=== PATIENT | male | born 1955 | race African-American/Black ===

== ENCOUNTER 2018-06-22 08:42 | Inpatient (IN) | payer BC, MEDICAID ==
[~2018-06-22] VITALS: Ht 182.9 cm; Wt 95.4 kg
[~2018-06-22 08:42] MED LIST: ASPI-1159 PO; CLOP75TA16 MT; COR6 PO; ISOS30TA12 PO; PRAV80TA21 PO; SACU1TAB7 PO
[2018-06-22] MEDS ORDERED: LOSA25TA3 PO (08:49)
[2018-06-22] MEDS ORDERED: NITROGLYCERIN 0.4MG TABLET SL SL PRN (09:15)
[2018-06-22] MEDS ORDERED: ASPIRIN 81MG EC TABLET PO ONE (09:15)
[2018-06-22 09:46] LABS: EOSINOPHILS % 0.8 % (0.0-5.0); HEMOGLOBIN. 15.6 g/dL (14.0-18.0); MEAN CORPUSCULAR HEMOGLOBIN 28.7 pg (28.0-32.0); MEAN CORPUSCULAR VOLUME 86.5 fL (80.0-94.0); MEAN PLATELET VOLUME 8.6 fl (7.4-10.4); MONOCYTES % 4.4 % (2.0-8.0); NEUTROPHILS % 79.8 % (40.0-76.0); PLATELET 163 x1000/uL (130-400); RED BLOOD CELL COUNT 5.43 mill/uL (4.7-6.1); RED CELL DISTRIBUTION WIDTH 14.2 % (11.6-14.6)
[2018-06-22 09:53] LABS: CHLORIDE 104 mEq/L (98-107)
[2018-06-22] MEDS ORDERED: HEPARIN 5000 UNITS/ML VIAL IV SCH ×2 (10:15→11:15)
[2018-06-22] MEDS: NITROGLYCERIN OINT 1GM/INCH UDPKT TD SCH ×3 (11:26→23:32)
[2018-06-22 12:22] VITALS: BP 130/69
[2018-06-22] MEDS ORDERED: IODIXANOL 320MG/ML 100 ML BOTTLE IV ONE (12:22)
[2018-06-22] MEDS ORDERED: FENTANYL CITRATE/PF 50MCG/ML 2ML VIAL ONE ×2 (12:47→13:58)
[2018-06-22] MEDS ORDERED: MIDAZOLAM HCL 2 MG/2 ML VIAL ONE ×2 (12:47→13:40)
[2018-06-22] MEDS ORDERED: LIDOCAINE HCL 1% 20ML VIAL (Pyxis) INJ ONE ×2 (13:13→14:20)
[2018-06-22] MEDS ORDERED: IODIXANOL 320MG/ML 200ML BOTTLE ONE (13:27)
[2018-06-22] MEDS ORDERED: IOHEXOL-300 100 ML BOTTLE ONE (13:37)
[2018-06-22] MEDS ORDERED: CLOPIDOGREL 75MG TABLET ONE (14:20)
[2018-06-22] MEDS ORDERED: SODIUM CHLORIDE 0.45% 1,000 ML IV ONE (14:30)
[2018-06-22] MEDS ORDERED: ONDANSETRON HCL 4MG/2ML INJ IV PRN (14:30)
[2018-06-22] MEDS ORDERED: ACETAMINOPHEN 325MG TABLET PO PRN (14:30)
[2018-06-22] MEDS ORDERED: CLOPIDOGREL 75MG TABLET PO ONE (14:30)
[2018-06-22] MEDS ORDERED: MORPHINE SULFATE 4 MG/ML CPJ (NOT FOR IM USE) IV PRN (14:30)
[2018-06-22] MEDS ORDERED: ATROPINE SULFATE 1MG/10ML SYR IV PRN (14:30)
[2018-06-22 15:12] VITALS: BP 130/69
[2018-06-22] MEDS ORDERED: HEPARIN SODIUM 1,000 UNIT/1ML VIAL IV ONE (15:18)
[2018-06-22] MEDS ORDERED: CEFAZOLIN 1000MG PREMIX 50 ML IV SCH (15:30)
[2018-06-22 16:00] VITALS: BP 117/74
[2018-06-22 18:00] VITALS: BP 109/8
[2018-06-22 20:00] VITALS: BP 106/67
[2018-06-22] MEDS: CARVEDILOL 6.25 MG TABLET PO SCH (21:22)
[2018-06-22 22:00] VITALS: BP 119/80
[2018-06-22] MEDS: ZOLPIDEM TARTRATE 5MG TABLET PO PRN (23:31)
[2018-06-23] VITALS (20 sets, daily range): BP systolic 97–135; BP diastolic 58–83
[2018-06-23] MEDS: NITROGLYCERIN OINT 1GM/INCH UDPKT TD SCH ×4 (06:00→23:18)
[2018-06-23] MEDS: ASPIRIN 325MG TABLET PO SCH (08:35)
[2018-06-23] MEDS: CLOPIDOGREL 75MG TABLET PO SCH (08:35)
[2018-06-23] MEDS: CARVEDILOL 6.25 MG TABLET PO SCH ×2 (08:36→21:21)
[2018-06-23] MEDS: LOSARTAN POTASSIUM 25 MG TABLET PO SCH (08:36)
[2018-06-23 11:46] LABS: BASOPHILS % 1.1 % (0.0-2.0); EOSINOPHILS % 2.1 % (0.0-5.0); HEMATOCRIT. 42.6 % (42.0-52.0); HEMOGLOBIN. 14.5 g/dL (14.0-18.0); LYMPHOCYTES % 25.6 % (20.0-50.0); MEAN CORPUSCULAR HEMOGLOBIN 29.2 pg (28.0-32.0); MEAN CORPUSCULAR VOLUME 85.9 fL (80.0-94.0); MEAN PLATELET VOLUME 8.8 fl (7.4-10.4); MONOCYTES % 11.5 % (2.0-8.0); NEUTROPHILS % 59.7 % (40.0-76.0); PLATELET 143 x1000/uL (130-400); RED BLOOD CELL COUNT 4.96 mill/uL (4.7-6.1); RED CELL DISTRIBUTION WIDTH 13.9 % (11.6-14.6)
[2018-06-23 12:06] LABS: CHLORIDE 105 mEq/L (98-107)
[2018-06-23 12:16] LABS: CREATINE KINASE MB FRACTION 40.7 ng/mL (0.5-3.6)
[2018-06-23 12:20] LABS: CREATINE KINASE 465 IU/L (39-308)
[2018-06-23 12:21] LABS: HDL CHOLESTEROL 38 mg/dL (40-59)
[2018-06-23 14:33] LABS: LDL CHOLESTEROL 106 mg/dL (5-100)
[2018-06-23 18:09] LABS: BASOPHILS % 0.8 % (0.0-2.0); EOSINOPHILS % 3.6 % (0.0-5.0); HEMATOCRIT. 43.9 % (42.0-52.0); HEMOGLOBIN. 14.7 g/dL (14.0-18.0); LYMPHOCYTES % 31.2 % (20.0-50.0); MEAN CORPUSCULAR HEMOGLOBIN 28.8 pg (28.0-32.0); MEAN PLATELET VOLUME 8.4 fl (7.4-10.4); MONOCYTES % 10.1 % (2.0-8.0); NEUTROPHILS % 54.3 % (40.0-76.0); PLATELET 147 x1000/uL (130-400); RED CELL DISTRIBUTION WIDTH 13.7 % (11.6-14.6)
[2018-06-23 18:15] LABS: CHLORIDE 105 mEq/L (98-107)
[2018-06-23 18:29] LABS: HDL CHOLESTEROL 40 mg/dL (40-59)
[2018-06-23 19:02] LABS: LDL CHOLESTEROL 101 mg/dL (5-100)
[2018-06-23] MEDS: ZOLPIDEM TARTRATE 5MG TABLET PO PRN (23:18)
[2018-06-24] VITALS (9 sets, daily range): BP systolic 103–145; BP diastolic 64–95
[2018-06-24] MEDS: NITROGLYCERIN OINT 1GM/INCH UDPKT TD SCH (06:00)
[2018-06-24 07:55] LABS: BASOPHILS % 0.4 % (0.0-2.0); EOSINOPHILS % 4.5 % (0.0-5.0); HEMATOCRIT. 43.7 % (42.0-52.0); HEMOGLOBIN. 14.6 g/dL (14.0-18.0); LYMPHOCYTES % 32.7 % (20.0-50.0); MEAN CORPUSCULAR HEMOGLOBIN 28.7 pg (28.0-32.0); MEAN CORPUSCULAR VOLUME 85.8 fL (80.0-94.0); MEAN PLATELET VOLUME 8.5 fl (7.4-10.4); MONOCYTES % 11.7 % (2.0-8.0); NEUTROPHILS % 50.7 % (40.0-76.0); PLATELET 147 x1000/uL (130-400); RED BLOOD CELL COUNT 5.09 mill/uL (4.7-6.1)
[2018-06-24 08:33] LABS: CHLORIDE 106 mEq/L (98-107)
[2018-06-24 08:47] LABS: CREATINE KINASE 218 IU/L (39-308)
[2018-06-24 08:51] LABS: CREATINE KINASE MB FRACTION 7.8 ng/mL (0.5-3.6)
[2018-06-24] MEDS: ASPIRIN 325MG TABLET PO SCH (09:37)
[2018-06-24] MEDS: CLOPIDOGREL 75MG TABLET PO SCH (09:37)
[2018-06-24] MEDS: CARVEDILOL 6.25 MG TABLET PO SCH (09:37)
[2018-06-24] MEDS: LOSARTAN POTASSIUM 25 MG TABLET PO SCH (09:37)
== END 2018-06-24 12:19 | disposition home or self-care (01) | DRG 246 ==
LOC: ER 08:42 → EDBEDREQ 09:34 → EDBEDREQTM 09:34 → 3WST 09:56 → EDBEDREQTM 10:07 → EDBEDREQ 10:07 → EDBEDREQSVC 10:07 → ENRESERV 11:19
PROVIDERS: ADMIT Internal Medicine; ATTEND Internal Medicine
PROC: 027035Z Dilation of Coronary Artery, One Artery with Two Drug-eluting Intraluminal Devices, Percutaneous Approach (ICD-10-PCS; principal; 2018-06-22)
PROC: 4A023N7 Measurement of Cardiac Sampling and Pressure, Left Heart, Percutaneous Approach (ICD-10-PCS; 2018-06-22)
PROC: B2111ZZ Fluoroscopy of Multiple Coronary Arteries using Low Osmolar Contrast (ICD-10-PCS; 2018-06-22)
PROC: B2151ZZ Fluoroscopy of Left Heart using Low Osmolar Contrast (ICD-10-PCS; 2018-06-22)
PROC: B2181ZZ Fluoroscopy of Left Internal Mammary Bypass Graft using Low Osmolar Contrast (ICD-10-PCS; 2018-06-22)
PROC: B2131ZZ Fluoroscopy of Multiple Coronary Artery Bypass Grafts using Low Osmolar Contrast (ICD-10-PCS; 2018-06-22)
DX: T82.857A Stenosis of other cardiac prosthetic devices, implants and grafts, initial encounter (principal); I21.4 Non-ST elevation (NSTEMI) myocardial infarction; I10 Essential (primary) hypertension; E78.00 Pure hypercholesterolemia, unspecified; I25.10 Atherosclerotic heart disease of native coronary artery without angina pectoris; I25.5 Ischemic cardiomyopathy; R73.9 Hyperglycemia, unspecified; E78.5 Hyperlipidemia, unspecified; M17.0 Bilateral primary osteoarthritis of knee; Y83.2 Surgical operation with anastomosis, bypass or graft as the cause of abnormal reaction of the patient, or of later complication, without mention of misadventure at the time of the procedure; Y92.89 Other specified places as the place of occurrence of the external cause; Z95.810 Presence of automatic (implantable) cardiac defibrillator; I25.2 Old myocardial infarction; Z79.899 Other long term (current) drug therapy; Z95.5 Presence of coronary angioplasty implant and graft
CPT/HCPCS: 36415; 71045; 80061; 82550; 82553; 83036; 83735; 83880; 84443; 84484; 85347; 85379; 92941; 93005; 93306; 93459; 96374; 99285; C1725; C1760; C1769; C1874; C1887; C1893; J0690; J1644; J2250; J3010; J3490; Q9967

== ENCOUNTER 2021-05-20 07:09 | Inpatient (IN) | payer BC ==
[~2021-05-20] VITALS: Ht 177.8 cm; Wt 101.6 kg
[~2021-05-20 07:09] MED LIST changes: -ASPI-1159 PO; +ASPI-1497 PO; -CLOP75TA16 MT; -ISOS30TA12 PO; +LOSA25TA3 PO; -PRAV80TA21 PO; -SACU1TAB7 PO
[2021-05-20 08:05] LABS: BASOPHILS % 0.9 % (0.0-2.0); EOSINOPHILS % 4.7 % (0.0-5.0); HEMATOCRIT. 48.1 % (42.0-52.0); HEMOGLOBIN. 16.2 g/dL (14.0-18.0); LYMPHOCYTES % 29.2 % (20.0-50.0); MEAN CORPUSCULAR HEMOGLOBIN 28.9 pg (28.0-32.0); MEAN CORPUSCULAR VOLUME 85.7 fL (80.0-94.0); MEAN PLATELET VOLUME 8.9 fl (7.4-10.4); MONOCYTES % 12.2 % (2.0-8.0); PLATELET 149 x1000/uL (130-400); RED BLOOD CELL COUNT 5.62 mill/uL (4.7-6.1); RED CELL DISTRIBUTION WIDTH 13.3 % (11.6-14.6)
[2021-05-20 08:12] LABS: CHLORIDE 104 mEq/L (98-107)
[2021-05-20] MEDS ORDERED: NITROGLYCERIN 50MCG/ML 10ML VIAL (CATH LAB) IV ONE (09:34)
[2021-05-20] MEDS ORDERED: NICARDIPINE 100MCG/ML 10ML VIAL (CATH LAB) IV ONE (09:34)
[2021-05-20] MEDS ORDERED: PHENYLEPHRINE 100MCG/ML 10ML VIAL (CATH LAB) IV ONE (09:34)
[2021-05-20] MEDS ORDERED: ASPIRIN/SOD BICARB/CITRIC ACID 324MG TAB EFF PO SCH (10:00)
[2021-05-20] MEDS ORDERED: LIDOCAINE HCL 1% 10 MG/ML 10ML VIAL ONE (12:32)
[2021-05-20] MEDS ORDERED: HEPARIN 1000 UNITS/ML 10ML ONE (12:32)
[2021-05-20] MEDS ORDERED: MIDAZOLAM HCL 2 MG/2 ML VIAL ONE (12:32)
[2021-05-20] MEDS ORDERED: FENTANYL CITRATE/PF 50MCG/ML 2ML VIAL ONE (12:32)
[2021-05-20] MEDS ORDERED: IODIXANOL 320MG/ML 200ML BOTTLE ONE (12:33)
[2021-05-20] MEDS ORDERED: ACETAMINOPHEN 325MG TABLET PO PRN (13:15)
[2021-05-20] MEDS ORDERED: SODIUM CHLORIDE 0.45% 1,000 ML IV SCH (13:15)
[2021-05-20] MEDS ORDERED: ATROPINE SULFATE 1MG/10ML SYR IV PRN (13:15)
[2021-05-20] MEDS ORDERED: MORPHINE SULFATE 2 MG/ML CPJ (NOT FOR IM USE) IV PRN (13:15)
[2021-05-20] MEDS ORDERED: ONDANSETRON HCL 4MG/2ML INJ IV PRN (13:15)
[2021-05-20 14:20] VITALS: BP 110/64
[2021-05-20 16:00] VITALS: BP 104/74
[2021-05-20] MEDS ORDERED: LOSARTAN POTASSIUM 25 MG TABLET PO NR (18:00)
[2021-05-20 18:03] VITALS: BP 106/76
[2021-05-20] MEDS ORDERED: CARVEDILOL 6.25 MG TABLET PO NR (19:00)
[2021-05-20 20:04] VITALS: BP 97/23
[2021-05-20 22:05] VITALS: BP 113/58
[2021-05-20 23:31] VITALS: BP 112/65
== END 2021-05-21 01:49 | disposition home or self-care (01) | DRG 287 ==
LOC: ER 07:09 → MICUSO 09:21 → EDBEDREQ 09:22 → EDBEDREQTM 09:22 → EDBEDREQSVC 09:22 → 3WST 13:51
PROVIDERS: ADMIT Internal Medicine; ATTEND Internal Medicine
PROC: 4A023N7 Measurement of Cardiac Sampling and Pressure, Left Heart, Percutaneous Approach (ICD-10-PCS; principal; 2021-05-20)
PROC: B2111ZZ Fluoroscopy of Multiple Coronary Arteries using Low Osmolar Contrast (ICD-10-PCS; 2021-05-20)
PROC: B2131ZZ Fluoroscopy of Multiple Coronary Artery Bypass Grafts using Low Osmolar Contrast (ICD-10-PCS; 2021-05-20)
DX: T82.855A Stenosis of coronary artery stent, initial encounter (principal); I50.22 Chronic systolic (congestive) heart failure; R07.89 Other chest pain; D75.1 Secondary polycythemia; E11.9 Type 2 diabetes mellitus without complications; E66.9 Obesity, unspecified; E78.00 Pure hypercholesterolemia, unspecified; E78.5 Hyperlipidemia, unspecified; I11.0 Hypertensive heart disease with heart failure; I25.10 Atherosclerotic heart disease of native coronary artery without angina pectoris; I25.5 Ischemic cardiomyopathy; I25.82 Chronic total occlusion of coronary artery; Z20.822 Contact with and (suspected) exposure to COVID-19; I27.20 Pulmonary hypertension, unspecified; Y83.1 Surgical operation with implant of artificial internal device as the cause of abnormal reaction of the patient, or of later complication, without mention of misadventure at the time of the procedure; Z79.02 Long term (current) use of antithrombotics/antiplatelets; I25.2 Old myocardial infarction; Z79.82 Long term (current) use of aspirin; Z79.899 Other long term (current) drug therapy; Z95.1 Presence of aortocoronary bypass graft; Z95.810 Presence of automatic (implantable) cardiac defibrillator; Y92.89 Other specified places as the place of occurrence of the external cause; Z68.32 Body mass index [BMI] 32.0-32.9, adult
CPT/HCPCS: 36415; 71045; 80053; 83880; 84484; 85025; 87426; 93005; 93458; 99285; C1769; C1887; C1893; J1644; J2250; J2370; J3010; J3490; Q9967

== ENCOUNTER 2022-09-30 14:47 | Inpatient (IN) | payer BC, MEDICARE ==
[~2022-09-30] VITALS: Ht 177.8 cm; Wt 99.3 kg
[2022-09-30] MEDS ORDERED: FUROSEMIDE 40MG/4ML VIAL IVP NR (15:15)
[2022-09-30 16:30] LABS: BASOPHILS % 1.2 % (0.0-2.0); EOSINOPHILS % 4.2 % (0.0-5.0); HEMATOCRIT. 44.1 % (42.0-52.0); HEMOGLOBIN. 14.5 g/dL (14.0-18.0); LYMPHOCYTES % 23.3 % (20.0-50.0); MEAN CORPUSCULAR HEMOGLOBIN 28.8 pg (28.0-32.0); MEAN CORPUSCULAR VOLUME 87.5 fL (80.0-94.0); MEAN PLATELET VOLUME 9.5 fl (7.4-10.4); MONOCYTES % 11.3 % (2.0-8.0); PLATELET 175 x1000/uL (130-400); RED BLOOD CELL COUNT 5.04 mill/uL (4.7-6.1); RED CELL DISTRIBUTION WIDTH 13.7 % (11.6-14.6)
[2022-09-30] MEDS: SPIRONOLACTONE 25MG TABLET PO SCH (16:34)
[2022-09-30 16:36] LABS: CHLORIDE 111 mEq/L (98-107)
[2022-09-30] MEDS: LOSARTAN POTASSIUM 25 MG TABLET PO SCH (17:00)
[2022-09-30] MEDS ORDERED: ENOXAPARIN 40MG/0.4ML SYR SUBCUT SCH (17:00)
[2022-09-30] MEDS: ASPIRIN 81MG EC TABLET PO SCH (19:13)
[2022-09-30 22:04] LABS: CLARITY URINE CLEAR (CLEAR); COLOR URINE YELLOW (YELLOW); KETONES URINE NEGATIVE (NEGATIVE); LEUKOCYTE ESTERASE URINE NEGATIVE (NEGATIVE); NITRITE URINE NEGATIVE (NEGATIVE); OCCULT BLOOD URINE NEGATIVE (NEGATIVE); PROTEIN URINE NEGATIVE (NEGATIVE); SPECIFIC GRAVITY URINE 1.009 (1.005-1.030); UROBILINOGEN URINE 0.2 E.U./dL (0.2-1.0)
[2022-09-30 22:16] LABS: *AMPHETAMINES SCREEN URINE NEGATIVE (NEGATIVE); *BARBITURATES SCREEN URINE NEGATIVE (NEGATIVE); *BENZODIAZEPINES SCREEN URINE NEGATIVE (NEGATIVE); *COCAINE SCREEN URINE NEGATIVE (NEGATIVE); CANNABINOID URINE SCREEN PRESUMTIVE POSITIVE (NEGATIVE); METHADONE URINE SCREEN NEGATIVE (NEGATIVE); OPIATES URINE SCREEN NEGATIVE (NEGATIVE); PHENCYCLIDINE URINE SCREEN NEGATIVE (NEGATIVE)
[2022-10-01] MEDS: CARVEDILOL 12.5MG TABLET PO SCH ×3 (03:36→20:39)
[2022-10-01 05:03] VITALS: BP 140/97
[2022-10-01 08:00] VITALS: BP 146/98
[2022-10-01] MEDS ORDERED: FUROSEMIDE 40MG/4ML VIAL IVP NR ×2 (09:00→18:00)
[2022-10-01] MEDS: LOSARTAN POTASSIUM 25 MG TABLET PO SCH ×2 (09:38→17:19)
[2022-10-01] MEDS: ASPIRIN 81MG EC TABLET PO SCH ×2 (09:39→17:19)
[2022-10-01] MEDS: SPIRONOLACTONE 25MG TABLET PO SCH (09:39)
[2022-10-01 09:45] LABS: BASOPHILS % 0.9 % (0.0-2.0); HEMATOCRIT. 43.3 % (42.0-52.0); HEMOGLOBIN. 14.5 g/dL (14.0-18.0); LYMPHOCYTES % 12.6 % (20.0-50.0); MEAN CORPUSCULAR HEMOGLOBIN 29.3 pg (28.0-32.0); MEAN CORPUSCULAR VOLUME 87.3 fL (80.0-94.0); MEAN PLATELET VOLUME 9.8 fl (7.4-10.4); MONOCYTES % 10.2 % (2.0-8.0); NEUTROPHILS % 73.3 % (40.0-76.0); PLATELET 169 x1000/uL (130-400); RED BLOOD CELL COUNT 4.96 mill/uL (4.7-6.1); RED CELL DISTRIBUTION WIDTH 13.8 % (11.6-14.6)
[2022-10-01 09:54] LABS: CHLORIDE 109 mEq/L (98-107)
[2022-10-01] MEDS ORDERED: CLOP-31 PO (10:42)
[2022-10-01] MEDS ORDERED: SPIR50TA5 PO (10:42)
[2022-10-01 12:00] VITALS: BP 123/67
[2022-10-01] MEDS ORDERED: POTASSIUM CHLORIDE 20MEQ TABLET SR PO NR (13:15)
[2022-10-01] MEDS: ENOXAPARIN 30MG/0.3ML SYR SUBCUT SCH ×2 (13:26→20:40)
[2022-10-01] MEDS: AMOXICILLIN/POTASSIUM CLAVULANATE 875/125MG TAB PO SCH ×2 (13:26→22:37)
[2022-10-01 16:00] VITALS: BP 137/76
[2022-10-01 20:00] VITALS: BP 115/62
[2022-10-01] MEDS: GUAIFENESIN 600MG ER TABLET PO SCH (20:39)
[2022-10-01 23:29] VITALS: BP 117/75
[2022-10-02 04:00] VITALS: BP 122/79
[2022-10-02 07:23] LABS: BASOPHILS % 1.3 % (0.0-2.0); CHLORIDE 104 mEq/L (98-107); EOSINOPHILS % 4.1 % (0.0-5.0); HEMATOCRIT. 43.9 % (42.0-52.0); HEMOGLOBIN. 14.8 g/dL (14.0-18.0); LYMPHOCYTES % 15.6 % (20.0-50.0); MEAN CORPUSCULAR HEMOGLOBIN 29.4 pg (28.0-32.0); MEAN CORPUSCULAR VOLUME 87.5 fL (80.0-94.0); MEAN PLATELET VOLUME 9.9 fl (7.4-10.4); MONOCYTES % 14.2 % (2.0-8.0); NEUTROPHILS % 64.8 % (40.0-76.0); PLATELET 159 x1000/uL (130-400); RED BLOOD CELL COUNT 5.02 mill/uL (4.7-6.1); RED CELL DISTRIBUTION WIDTH 13.7 % (11.6-14.6)
[2022-10-02 08:00] VITALS: BP 142/90
[2022-10-02] MEDS: LOSARTAN POTASSIUM 25 MG TABLET PO SCH (09:24)
[2022-10-02] MEDS: AMOXICILLIN/POTASSIUM CLAVULANATE 875/125MG TAB PO SCH (09:24)
[2022-10-02] MEDS: GUAIFENESIN 600MG ER TABLET PO SCH (09:24)
[2022-10-02] MEDS: CARVEDILOL 12.5MG TABLET PO SCH (09:24)
[2022-10-02] MEDS: ASPIRIN 81MG EC TABLET PO SCH (09:25)
[2022-10-02] MEDS: ENOXAPARIN 30MG/0.3ML SYR SUBCUT SCH (09:25)
[2022-10-02] MEDS: SPIRONOLACTONE 25MG TABLET PO SCH (09:25)
== END 2022-10-02 11:35 | disposition home or self-care (01) | DRG 291 ==
LOC: ER 14:47 → 8WST 17:46 → EDBEDREQTM 18:00 → EDBEDREQ 18:00 → 7EST 10-01 06:54
PROVIDERS: ADMIT Specialist; ATTEND Specialist
DX: I11.0 Hypertensive heart disease with heart failure (principal); I50.23 Acute on chronic systolic (congestive) heart failure; I25.10 Atherosclerotic heart disease of native coronary artery without angina pectoris; E78.5 Hyperlipidemia, unspecified; I25.5 Ischemic cardiomyopathy; E78.00 Pure hypercholesterolemia, unspecified; L60.3 Nail dystrophy; M20.40 Other hammer toe(s) (acquired), unspecified foot; L60.0 Ingrowing nail; I25.2 Old myocardial infarction; Z79.899 Other long term (current) drug therapy; Z95.810 Presence of automatic (implantable) cardiac defibrillator; Z95.1 Presence of aortocoronary bypass graft; Z79.82 Long term (current) use of aspirin; Z79.02 Long term (current) use of antithrombotics/antiplatelets
CPT/HCPCS: 36415; 71045; 80048; 80053; 80305; 81003; 83880; 84484; 85025; 85379; 93005; 93970; 99285; J1650; J1940